=== PATIENT | male | born 1960 | race Caucasian/White ===

== ENCOUNTER 2016-07-23 18:29 | Emergency (ER) | payer SELFPAY ==
[2016-07-23] MEDS ORDERED: Alum Hydrox/Mag Hydrox/Simeth 15 ML, Metoclopramide 5 MG, Lidocaine 2% 5 ML PO ONE ×3 (18:37)
[2016-07-23] MEDS ORDERED: Ketorolac 30 MG/ML SDV IVPUSH ONE (18:37)
[2016-07-23] MEDS ORDERED: Aspirin 81 MG Tab.Chew PO ONE ×2 (18:37→19:09)
[2016-07-23] MEDS ORDERED: Famotidine 20 MG/2 ML SDV IVPUSH ONE (18:37)
[2016-07-23] MEDS ORDERED: Sodium Chloride 0.9% 1,000 ML IV ONE (18:37)
[2016-07-23] MEDS ORDERED: Nitroglycerin 0.4 MG Tab.SL SL ONE (19:09)
[2016-07-23] MEDS ORDERED: Nitroglycerin 2% Oint 1 GM UD Packet TOP ONE (19:09)
[2016-07-23 19:13] LABS: CHLORIDE,CL 104 mmol/L (98-110); SODIUM,NA 141 mmol/L (136-146)
--- NOTE | 2016-07-23 19:26 | EDM.PDOC ---
ED HISTORY OF PRESENT ILLNESS - General Chief Complaint: Chest Pain Stated Complaint: CHEST PAIN Time Seen by Provider: 07/23/16 19:00 Source of Information: Reports: Patient History Limitations: Reports: No limitations - History of Present Illness INITIAL COMMENTS - FREE TEXT/NARRATIVE: History of present illness: [56-year-old male presenting with acute onset chest pain. He tells triage nurse that he's had increasing chest pain the last 3 hours but then on exam he embellishes if his left shoulder and that it hurts at a rate of 9/10 when he puts it through range of motion. Patient also indicates he has a history of a previous [place] but is somewhat unclear on dates. Patient indicates that general movement is quite painful to him specifically in the left shoulder.] Review of systems: As per history of present illness and below otherwise all systems reviewed and negative. Past medical history: As per history of present illness and as reviewed below otherwise noncontributory. Surgical history: As per history of present illness and as reviewed below otherwise noncontributory. Social history: No reported history of drug or alcohol abuse. Family history: As per history of present illness and as reviewed below otherwise noncontributory. Physical exam: HEENT: Atraumatic, normocephalic, pupils reactive, negative for conjunctival pallor or scleral icterus, mucous membranes moist, throat clear, neck supple, nontender, trachea midline. Lungs: Clear to auscultation, breath sounds equal bilaterally, chest nontender. Heart: S1S2, regular, negative for clicks, rubs, or JVD. Abdomen: Soft, nondistended, nontender. Negative for masses or hepatosplenomegaly. Negative for costovertebral tenderness. Pelvis: Stable nontender. Genitourinary: Deferred. Rectal: Deferred. Extremities: Atraumatic, negative for cords or calf pain. Neurovascular unremarkable. Neuro: Awake, alert, oriented. Cranial nerves II through XII unremarkable. Cerebellum unremarkable. Motor and sensory unremarkable throughout. Exam nonfocal. Patient presenting with a benign assessment save pain at the shoulder joint and when patient asked to point specifically he indicates the humeral head. He then indicates that the pain radiates across his chest and it hurts worse as he moves his arm. He shouldn't exhibits this by lifting his left arm up with his right arm and then winces. Patient has a statement that his pain is now 3/10 and if he sits still it doesn't hurt at all. But the color of pain it is green. Pain is clearly reproducible and has significant point tenderness right at the a.c. joint. Diagnostics: [CBC, CMP, troponin] Therapeutics: [Aspirin, Toradol, normal saline, nitro paste] Impression: [Chest] Plan: [Mid to Dr. Darnell for observation] Definitive disposition and diagnosis as appropriate pending reevaluation and review of above. - Related Data Allergies/ADRs: Allergies Allergy/AdvReac Type Severity Reaction Status Date / Time No Known Allergies Allergy Verified 07/23/16 18:44 Home Meds: Home Meds . [No Known Home Meds] 07/23/16 [History] Past Medical History Cardiovascular History: Reports: ND - Infectious Disease History Infectious Disease History: Reports: C-difficile Social & Family History - Tobacco Use Smoking Status *Q: Current Every Day Smoker Years of Tobacco use: 14 Packs/Tins Daily: 1 - Caffeine Use Caffeine Use: Reports: Coffee - Recreational Drug Use Recreational Drug Use: No ED ROS GENERAL - Review of Systems Review Of Systems: See Below (The history of present illness) ED EXAM, GENERAL - Physical Exam Exam: See Below (See history of present illness) Course - Vital Signs Last Recorded V/S: Last Vital Signs Temp 36.7 C 07/23/16 18:41 Pulse 62 07/23/16 19:31 Resp 17 07/23/16 19:31 BP 131/87 07/23/16 19:31 Pulse Ox 96 07/23/16 19:31 - Orders/Labs/Meds Orders: Active Orders 24 hr Category Date Time Status Patient Status [ADT] Stat ADT 07/23/16 20:11 Ordered EKG Documentation Completion [RC] STAT Care 07/23/16 18:37 Active Chest 2V [CR] Stat Exams 07/23/16 18:37 Taken Labs: Laboratory Tests 07/23/16 07/23/16 07/23/16 Range/Units 18:35 18:35 18:35 WBC 8.40 (4.0-11.0) K/uL RBC 4.69 (4.50-5.90) M/uL Hgb 15.2 (13.0-17.0) g/dL Hct 44.2 (38.0-50.0) % MCV 94.2 (80.0-98.0) fL MCH 32.4 H (27.0-32.0) pg MCHC 34.4 (31.0-37.0) g/dL RDW Std Deviation 45.9 (28.0-62.0) fl RDW Coeff of Domi 13 (11.0-15.0) % Plt Count 228 (150-400) K/uL MPV 11.30 (7.40-12.00) fL Neut % (Auto) 59.0 (48.0-80.0) % Lymph % (Auto) 27.3 (16.0-40.0) % Twiggs % (Auto) 10.5 (0.0-15.0) % Eos % (Auto) 2.6 (0.0-7.0) % Baso % (Auto) 0.6 (0.0-1.5) % Neut # (Auto) 5.0 (1.4-5.7) K/uL Lymph # (Auto) 2.3 (0.6-2.4) K/uL Twiggs # (Auto) 0.9 H (0.0-0.8) K/uL Eos # (Auto) 0.2 (0.0-0.7) K/uL Baso # (Auto) 0.1 (0.0-0.1) K/uL Nucleated RBC % 0.0 /100WBC Nucleated RBCs # 0 K/uL Sodium 141 (136-146) mmol/L Potassium 4.1 (3.5-5.1) mmol/L Chloride 104 (98-110) mmol/L Carbon Dioxide 25 (21-31) mmol/L BUN 18 (6.0-23.0) mg/dL Creatinine 1.2 (0.6-1.5) mg/dL Est Cr Clr Drug Dosing 84.11 mL/min Estimated GFR (MDRD) > 60.0 ml/min Glucose 96 (60-110) mg/dL Calcium 9.9 (8.8-10.8) mg/dL Total Bilirubin 0.3 (0.1-1.5) mg/dL AST 17 (5-40) IU/L ALT 10 (8-54) IU/L Alkaline Phosphatase 66 (40-150) Troponin I < 0.10 (0.0-0.29) NG/ML Total Protein 7.9 (6.0-8.0) g/dL Albumin 4.6 (3.5-5.0) g/dL Globulin 3.3 (2.0-3.5) g/dL Albumin/Globulin Ratio 1.4 (1.3-2.8) Amylase 34 (10-90) U/L Lipase 38 (7-80) U/L Meds: Medications Discontinued Medications Generic Name Dose Route Start Last Admin Trade Name Jorge PRN Reason Stop Dose Admin Aspirin 324 mg 07/23/16 18:37 07/23/16 18:47 Aspirin PO 07/23/16 18:38 324 mg ONETIME ONE Administration Aspirin 324 mg 07/23/16 19:09 07/23/16 19:33 Aspirin PO 07/23/16 19:10 Not Given ONETIME ONE Al Hydroxide/Mg Hydroxide 15 0 ml 07/23/16 18:37 07/23/16 18:47 ml/ Metoclopramide HCl 5 mg/ PO 07/23/16 18:38 20 each Lidocaine HCl 5 ml ONETIME ONE Administration Famotidine 20 mg 07/23/16 18:37 07/23/16 18:48 Pepcid IVPUSH 07/23/16 18:38 20 mg ONETIME ONE Administration Sodium Chloride 1,000 mls @ 999 mls/hr 07/23/16 18:37 07/23/16 18:47 Normal Saline IV 07/23/16 19:37 999 mls/hr .Bolus ONE Administration Ketorolac Tromethamine 30 mg 07/23/16 18:37 07/23/16 18:48 Toradol IVPUSH 07/23/16 18:38 30 mg ONETIME ONE Administration Nitroglycerin 0.5 gm 07/23/16 19:09 07/23/16 19:27 Nitro-Bid 2% TOP 07/23/16 19:10 0.5 gm ONETIME ONE Administration Nitroglycerin 0.4 mg 07/23/16 19:09 07/23/16 19:28 Nitrostat SL 07/23/16 19:10 0.4 mg ONETIME ONE Administration Departure - Departure Time of Disposition: 20:14 Disposition: Admitted As Inpatient 68 Condition: good Clinical Impression: Atypical chest pain Forms: ED Department Discharge - My Orders Last 24 Hours: My Active Orders 07/23/16 18:37 EKG Documentation Completion [RC] STAT Chest 2V [CR] Stat 07/23/16 20:11 Patient Status [ADT] Stat - Assessment/Plan Last 24 Hours: My Active Orders 07/23/16 18:37 EKG Documentation Completion [RC] STAT Chest 2V [CR] Stat 07/23/16 20:11 Patient Status [ADT] Stat
[2016-07-23 20:28] VITALS: BP 143/93
--- NOTE | 2016-07-24 12:18 | CR ---
EXAM DATE: 07/23/16 PATIENT'S AGE: 56 Patient: BETTIE SANTOS Facility: [place], [place] Site . Site : [id number] Study: XRay Chest [id number]/16/2017 7:14:43 PM Ordering Physician: Doctor Samayoa Final Report: INDICATION: chest pain, L arm pain, sob TECHNIQUE: Chest 2 views COMPARISON: None FINDINGS: Cardiovascular and mediastinum: Heart size and vasculature are normal in caliber and appearance. Mediastinum is within normal limits. Lungs and pleural spaces: No focal consolidation. Nodular densities centrally within the lower lobes bilaterally. No sign of pleural effusion. No pneumothorax. Bones and soft tissues: Degenerative changes. IMPRESSION: 1. No acute cardiopulmonary disease. 2. Nodular density centrally within the lower lobes bilaterally. These likely represent nipple shadows. If clinically warranted this can be confirmed with nipple markers and shallow oblique imaging Dictated by Hever Lei MD @ 07/23/2016 7:31:56 PM Dictated by: Hever Lei MD @ 07/23/2016 19:32:02 (Electronic Signature) Report Signed by Proxy and Original Signed Document filed in the Medical Record. [facility]ITAL[facility]ood
== END 2016-07-23 20:38 | disposition left against medical advice (07) ==
LOC: MW.ED 18:29 → MW.MS 20:11 → UNDOADMOB 20:11
DX: R07.89 Other chest pain (principal); I25.2 Old myocardial infarction; F17.210 Nicotine dependence, cigarettes, uncomplicated
CPT/HCPCS: 36415; 71020; 80053; 82150; 83690; 84484; 85025; 93005; 96361; 96374; 96375; 99285; A9270; J1885; J7040; 99284